=== PATIENT | male | born 1945 | race Caucasian/White ===

== ENCOUNTER 2025-01-13 11:40 | Day surgery (SDC) | payer MEDICARE, OTHER ==
[2025-01-07 11:36] VITALS: BMI 27.4
--- NOTE | 2025-01-08 12:08 | P.HPIHPCON ---
History of Present Illness H&P Date: 01/08/25 Chief Complaint: Bladder mass This is an 79-year-old male with history of bladder mass that was seen on ultrasound and confirmed on cystoscopy. Discussed with him given this finding I do recommend proceeding with a transurethral resection of the bladder tumor. He is aware of the risk which include but not limited to bleeding, infection, bladder perforation. Risk of anesthesia was also discussed. He understood all the risk and agreed to proceed Consent for Procedure: I have explained the operation/procedure to the patient, including the risks, benefits, side effects, alternative therapies (including not receiving the proposed treatment or service), the likelihood of the patient achieving his/her goals, and potential recuperation problems for the procedure/sedation/analgesia, as well as any blood products, if indicated. I also explained to the patient the risks, benefits and side effects of the alternatives, as well as the risks related to not receiving the proposed procedure, care, treatment, or services. Past Medical History Past Medical History: Cancer, Diabetes Mellitus, Hypertension Additional Past Medical History / Comment(s): Current bladder tumor. Hx skin cancer. History of Any Multi-Drug Resistant Organisms: None Reported Past Surgical History: Bowel Resection Additional Past Surgical History / Comment(s): Bowel resection due to polyp, colonoscopy. Past Anesthesia/Blood Transfusion Reactions: No Reported Reaction Smoking Status: Former smoker - Past Family History Mother Family Medical History: Dialysis Additional Family Medical History / Comment(s): Kidney problems. Father Family Medical History: CVA/TIA Medications and Allergies Home Medications Medication Instructions Recorded Confirmed Type Biotin (Unknown Dose) 1 tab PO DAILY 01/07/25 01/07/25 History Losartan Potassium 50 mg PO QAM 01/07/25 01/07/25 History Multivitamins, Thera [Multivitamin 1 tab PO DAILY 01/07/25 01/07/25 History (formulary)] Triamterene-Hctz 37.5-25Mg 1 cap PO QAM 01/07/25 01/07/25 History [Dyazide 37.5-25 Capsule] metFORMIN HCL 500 mg PO BID 01/07/25 01/07/25 History Allergies Allergy/AdvReac Type Severity Reaction Status Date / Time No Known Allergies Allergy Verified 01/07/25 11:12 Surgical - Exam - General no distress, no pain - Eyes normal ocular movement, no pale - ENT normal nares, normal mucosa - Respiratory normal expansion, normal respiratory effort - Abdomen Abdomen: soft, non tender, no distended - Psychiatric oriented to time, oriented to person, oriented to place Assessment and Plan Assessment: OR for TURBT
[~2025-01-13 11:40] MED LIST: LIDOCAINE 1% (10MG/ML) FOR IV START INTRADERMA PRN; MIDAZOLAM 2 MG/2 ML VIAL IV PRN; fentaNYL (PF) 50 MCG/ML 2 ML AMP IVP PRN
[2025-01-13] MEDS: IV FLUID CONTINUATION 1,000 ML IV ONE (12:09)
[2025-01-13 12:13] VITALS: RESP 16
[2025-01-13 12:28] LABS: Glucose,Whole Blood 116 mg/dL (70-110)
[2025-01-13] MEDS: DEXAMETHASONE SOD PHOSPHATE 4 MG/ML 1 ML VIAL IV ONE (12:41)
[2025-01-13] MEDS: ONDANSETRON 4 MG/2 ML VIAL IVP ONE (12:41)
[2025-01-13] MEDS: LACTATED RINGERS 1,000 ML IV SCH (12:41)
[2025-01-13] MEDS ORDERED: fentaNYL (PF) 50 MCG/ML 2 ML AMP ONE (15:19)
[2025-01-13] MEDS ORDERED: LIDOCAINE 1% INJ 10MG/ML (20 ML MDV) ONE (15:19)
[2025-01-13] MEDS ORDERED: SUCCINYLCHOLINE CHLORIDE 200 MG/10 ML VIAL IV ONE (15:19)
[2025-01-13] MEDS ORDERED: NEOSTIGMINE 1 MG/ML 10 ML VIAL ONE (15:19)
[2025-01-13] MEDS ORDERED: ROCURONIUM 10 MG/ML (5 ML VIAL) IV ONE (15:19)
[2025-01-13] MEDS ORDERED: PROPOFOL 10 MG/ML 20 ML VIAL IV ONE (15:19)
[2025-01-13] MEDS ORDERED: GLYCOPYRROLATE 0.2 MG/ML 2 ML VIAL ONE (15:19)
[2025-01-13] MEDS: SODIUM CHLORIDE 0.9% MISCELLANE PRN ×2 (16:12→16:13)
[2025-01-13] MEDS: GEMCITABINE HCL MISCELLANE PRN ×2 (16:12→16:13)
--- NOTE | 2025-01-13 16:24 | P.OP ---
Date of Procedure: 01/13/25 Preoperative Diagnosis: Bladder mass Postoperative Diagnosis: Same Procedure(s) Performed: TURBT(large), instillation of intravesical gemcitabine Implants: none Anesthesia: YORDYA Surgeon: Alexx Pascual Estimated Blood Loss (ml): 10 Pathology: other (Bladder mass) Condition: stable Disposition: PACU Indications for Procedure: This is an 79-year-old male with history of bladder mass that was seen on ultrasound and confirmed on cystoscopy. Discussed with him given this finding I do recommend proceeding with a transurethral resection of the bladder tumor. He is aware of the risk which include but not limited to bleeding, infection, bladder perforation. Risk of anesthesia was also discussed. He understood all the risk and agreed to proceed Description of Procedure: Patient brought to the operating room, general anesthesia was induced. He was prepped in the posterior fashion placed in dorsolithotomy position. Patient had narrowing at the meatus, this was dilated using the John sound starting at [address] and going all the way up to 28. Resectoscope fitted with 25 [place] sheath was inserted per urethra, cystoscopy was performed showed a large bladder tumor along the posterior bladder wall extending to the right lateral wall, using the bipolar resectoscope the tumor was resected down to muscle, area of resection was thoroughly fulgurated, tumor specimen was irrigated out. Repeat cystoscopy showed no evidence of bleeding, injury to the ureteral orifice ease, or evidence of bladder perforation. Total area of resection was 5 cm. This time the resectoscope was withdrawn and a 20 [place] Clancy was placed with return of clear urine, catheter was irrigated to clear. 2 g of gemcitabine was instilled into the bladder, and the catheter was plugged. This will be drained in 2 hour. patient tolerated the procedure well second recovery in stable condition
[2025-01-13 16:33] VITALS: TEMP 97.8
[2025-01-13] MEDS: HYDROmorphone 0.5 MG/0.5 ML SYRINGE IVP PRN (16:35)
[2025-01-13 17:47] VITALS: BP 140/80; PULSE 62
== END 2025-01-13 18:22 | disposition home or self-care (01) ==
LOC: OR 11:40
PROVIDERS: ATTEND Urology
DX: C67.9 Malignant neoplasm of bladder, unspecified (principal); I10 Essential (primary) hypertension; E11.9 Type 2 diabetes mellitus without complications; Z85.828 Personal history of other malignant neoplasm of skin; Z86.0100 Personal history of colon polyps, unspecified; Z87.891 Personal history of nicotine dependence; Z82.3 Family history of stroke; Z79.84 Long term (current) use of oral hypoglycemic drugs; Z79.899 Other long term (current) drug therapy
CPT/HCPCS: 51720; 52240; 88305; J0330; J1100; J2710; J0690; J2405; J2003; J3010; J2704; J1171; J1596; J9196